=== PATIENT | female | born 1925 | race Caucasian/White ===

== ENCOUNTER 2017-05-04 15:17 | Inpatient (IN) | payer MEDICARE ==
[~2017-05-04] VITALS: Ht 170.2 cm; Wt 60.8 kg
[2017-05-04] MEDS ORDERED: SODIUM CHLORIDE FLUSH 10ML SYR IVF ONE (15:30)
[2017-05-04] MEDS ORDERED: ASPIRIN 81 MG TABLET CHEW PO ONE (15:30)
[2017-05-04] MEDS ORDERED: DILTIAZEM 5 MG/ML, 5ML IV ONE (15:30)
[2017-05-04] MEDS ORDERED: AMLO5TAB2 PO (15:33)
[2017-05-04] MEDS ORDERED: DOCU-186 PO (15:33)
[2017-05-04] MEDS ORDERED: LISI5TAB7 PO (15:34)
[2017-05-04] MEDS ORDERED: ASPI-621 PO (15:34)
[2017-05-04] MEDS ORDERED: SPIR25TA3 PO (15:35)
[2017-05-04] MEDS ORDERED: DILTIAZEM 5 MG/ML, 5ML ONE ×2 (15:52→16:49)
[2017-05-04] MEDS ORDERED: ASPIRIN 81 MG TABLET CHEW ONE ×2 (15:52→16:49)
[2017-05-04 16:42] LABS: BASOPHILS # (AUTO) 0.05 x10^3/uL (0-0.1); BASOPHILS % (AUTO) 1 % (0-1); EOSINOPHILS # (AUTO) 0.21 x10^3/uL (0-0.4); EOSINOPHILS % (AUTO) 3 % (1-7); LYMPHOCYTES # (AUTO) 1.41 x10^3/uL (1-3.4); LYMPHOCYTES % (AUTO) 18 % (22-44); MD NO; MEAN CORPUSCULAR HEMOGLOBIN 29.6 pg (27.0-34.8); MEAN CORPUSCULAR HGB CONC 32.9 g/dL (32.4-35.8); MEAN CORPUSCULAR VOLUME 90.1 fL (80-100); MEAN PLATELET VOLUME 8.8 fL (7.4-10.4); MONOCYTES # (AUTO) 0.73 x10^3/uL (0.2-0.8); MONOCYTES % (AUTO) 10 % (2-9); NEUTROPHILS # (AUTO) 5.29 x10^3/uL (1.8-6.8); NEUTROPHILS % (AUTO) 69 % (42-75); PLATELET COUNT 273 x10^3/uL (130-400); RED BLOOD COUNT 4.07 x10^6/uL (3.82-5.3); RED CELL DISTRIBUTION WIDTH 15.1 % (9.6-15.2)
[2017-05-04 16:48] LABS: PROTHROMBIN TIME 10.4 Seconds (9.6-11.5)
[2017-05-04 16:52] LABS: ALANINE AMINOTRANSFERASE 19 U/L (12-78); ALBUMIN 3.8 g/dL (3.4-5.0); ANION GAP 8 mmol/L (5-15); CALCIUM 9.6 mg/dL (8.5-10.1); CHLORIDE 103 mmol/L (98-107); CREATININE 1.26 mg/dL (0.55-1.02)
[2017-05-04 16:57] LABS: ALKALINE PHOSPHATASE 111 U/L (45-117); BILIRUBIN,TOTAL 0.8 mg/dL (0.2-1.0); TOTAL PROTEIN 7.6 g/dL (6.4-8.2); TROPONIN I < 0.015 ng/mL (0.000-0.045)
[2017-05-04] MEDS ORDERED: SODIUM CHLORIDE FLUSH 10ML SYR IVF PRN (17:30)
[2017-05-04] MEDS ORDERED: AMPICILLIN/SULBACTAM 3 GM in SODIUM CHLORIDE 0.9% 100 ML IV ONE (17:30)
[2017-05-04] MEDS ORDERED: ENOXAPARIN 100 MG/ML SQ SCH (17:30)
[2017-05-04 18:05] VITALS: BP 98/66
[2017-05-04] MEDS ORDERED: SENN-87 PO (18:23)
[2017-05-04] MEDS ORDERED: MELA3TAB2 PO (18:23)
[2017-05-04] MEDS ORDERED: ACET500T63 PO (18:23)
[2017-05-04] MEDS ORDERED: TRAM50TA2 PO (18:23)
[2017-05-04] MEDS: AMPICILLIN/SULBACTAM 3 GM in SODIUM CHLORIDE 0.9% 100 ML IV SCH (18:43)
[2017-05-04] MEDS ORDERED: OXYcodone IR 5MG TABLET PO PRN (19:00)
[2017-05-04] MEDS ORDERED: HEPARIN 5,000 UNITS/ML, 1ML IV PRN (19:00)
[2017-05-04] MEDS ORDERED: POLYETHYLENE GLYCOL 17 GM PACKET PO PRN (19:00)
[2017-05-04] MEDS ORDERED: ONDANSETRON 2MG/ML, 2ML IVPush PRN (19:00)
[2017-05-04] MEDS ORDERED: BISACODYL 10 MG SUPP PR PRN (19:00)
[2017-05-04] MEDS ORDERED: HEPARIN 25,000 UNITS/500ML PMX 500 ML IV PRN (19:00)
[2017-05-04] MEDS ORDERED: HEPARIN 5,000 UNITS/ML, 1ML IV ONE (19:00)
[2017-05-04 19:08] VITALS: BP 107/61
[2017-05-04] MEDS: METOPROLOL TARTRATE 25 MG TABLET PO SCH (20:17)
[2017-05-04] MEDS: SENNOSIDES 8.6 MG TABLET PO SCH (20:17)
[2017-05-04] MEDS: SODIUM CHLORIDE FLUSH 10ML SYR IVF SCH (20:18)
[2017-05-04] MEDS: MELATONIN 3 MG TABLET PO SCH (20:18)
[2017-05-04] MEDS: FUROSEMIDE 20 MG/2 ML IV SCH (20:18)
[2017-05-04 22:34] LABS: MICROSCOPIC AUTO
[2017-05-04 22:36] LABS: CULTURE INDICATED? YES
[2017-05-04 22:54] LABS: TROPONIN I < 0.015 ng/mL (0.000-0.045)
[2017-05-05] MEDS: AMPICILLIN/SULBACTAM 3 GM in SODIUM CHLORIDE 0.9% 100 ML IV SCH ×4 (01:01→21:06)
[2017-05-05 01:17] VITALS: BP 89/55
[2017-05-05 05:17] LABS: BASOPHILS # (AUTO) 0.09 x10^3/uL (0-0.1); BASOPHILS % (AUTO) 1 % (0-1); EOSINOPHILS % (AUTO) 3 % (1-7); LYMPHOCYTES # (AUTO) 1.55 x10^3/uL (1-3.4); LYMPHOCYTES % (AUTO) 24 % (22-44); MD NO; MEAN CORPUSCULAR HEMOGLOBIN 29.6 pg (27.0-34.8); MEAN CORPUSCULAR HGB CONC 33.3 g/dL (32.4-35.8); MEAN CORPUSCULAR VOLUME 88.8 fL (80-100); MEAN PLATELET VOLUME 9.4 fL (7.4-10.4); MONOCYTES # (AUTO) 0.73 x10^3/uL (0.2-0.8); MONOCYTES % (AUTO) 12 % (2-9); NEUTROPHILS # (AUTO) 3.78 x10^3/uL (1.8-6.8); NEUTROPHILS % (AUTO) 60 % (42-75); PLATELET COUNT 252 x10^3/uL (130-400); RED CELL DISTRIBUTION WIDTH 14.7 % (9.6-15.2)
[2017-05-05 05:25] LABS: CHLORIDE 105 mmol/L (98-107)
[2017-05-05 05:41] LABS: ALANINE AMINOTRANSFERASE 15 U/L (12-78); ALBUMIN 3.1 g/dL (3.4-5.0); ALKALINE PHOSPHATASE 91 U/L (45-117); ANION GAP 7 mmol/L (5-15); CALCIUM 8.8 mg/dL (8.5-10.1); CREATININE 1.18 mg/dL (0.55-1.02); TOTAL PROTEIN 6.4 g/dL (6.4-8.2); TROPONIN I < 0.015 ng/mL (0.000-0.045)
[2017-05-05] MEDS: METOPROLOL TARTRATE 25 MG TABLET PO SCH ×2 (06:00→16:23)
[2017-05-05] MEDS ORDERED: HEPARIN 25,000 UNITS/500ML PMX 500 ML IV PRN (06:00)
[2017-05-05 07:40] VITALS: BP 95/62
[2017-05-05] MEDS: LISINOPRIL 5 MG TABLET PO SCH (07:57)
[2017-05-05] MEDS: SENNA/DOCUSATE TABLET PO SCH (07:57)
[2017-05-05] MEDS ORDERED: SPIRONOLACTONE 25 MG TABLET PO SCH (09:00)
[2017-05-05] MEDS: ASPIRIN 81 MG TABLET EC PO SCH (09:12)
[2017-05-05] MEDS: SODIUM CHLORIDE FLUSH 10ML SYR IVF SCH ×2 (09:12→21:08)
[2017-05-05] MEDS: FUROSEMIDE 20 MG/2 ML IV SCH ×3 (09:12→17:11)
[2017-05-05 14:30] VITALS: BP 112/76
[2017-05-05] MEDS: HEPARIN 5,000 UNITS/ML, 1ML SQ SCH (14:43)
[2017-05-05] MEDS: ACETAMINOPHEN 325 MG TABLET PO PRN (17:26)
[2017-05-05 20:24] VITALS: BP 104/63
[2017-05-05] MEDS: SENNOSIDES 8.6 MG TABLET PO SCH (21:08)
[2017-05-05] MEDS: MELATONIN 3 MG TABLET PO SCH (21:08)
[2017-05-06] VITALS (7 sets, daily range): BP systolic 88–113; BP diastolic 53–75
[2017-05-06] MEDS: HEPARIN 5,000 UNITS/ML, 1ML SQ SCH ×3 (00:36→15:55)
[2017-05-06] MEDS: AMPICILLIN/SULBACTAM 3 GM in SODIUM CHLORIDE 0.9% 100 ML IV SCH ×3 (03:31→17:04)
[2017-05-06] MEDS: METOPROLOL TARTRATE 25 MG TABLET PO SCH (06:43)
[2017-05-06] MEDS: FUROSEMIDE 20 MG/2 ML IV SCH ×2 (08:24→17:05)
[2017-05-06] MEDS: SODIUM CHLORIDE FLUSH 10ML SYR IVF SCH ×2 (08:25→19:50)
[2017-05-06] MEDS: LISINOPRIL 5 MG TABLET PO SCH (08:25)
[2017-05-06] MEDS: ASPIRIN 81 MG TABLET EC PO SCH (08:25)
[2017-05-06] MEDS: SENNA/DOCUSATE TABLET PO SCH (08:25)
[2017-05-06] MEDS ORDERED: DIGOXIN 0.25 MG/ML, 2ML IVPush SCH ×3 (09:30→15:30)
[2017-05-06] MEDS ORDERED: DIGOXIN 0.25 MG/ML, 2ML ONE (09:54)
[2017-05-06] MEDS ORDERED: DIGOXIN 0.25 MG/ML, 2ML IVPush ONE (15:30)
[2017-05-06] MEDS: SENNOSIDES 8.6 MG TABLET PO SCH (19:50)
[2017-05-06] MEDS: METOPROLOL TARTRATE 50 MG TABLET PO SCH (19:50)
[2017-05-06] MEDS: MELATONIN 3 MG TABLET PO SCH (19:50)
[2017-05-07] MEDS: HEPARIN 5,000 UNITS/ML, 1ML SQ SCH ×3 (00:13→16:00)
[2017-05-07 01:45] VITALS: BP 114/68
[2017-05-07] MEDS: AMPICILLIN/SULBACTAM 3 GM in SODIUM CHLORIDE 0.9% 100 ML IV SCH ×2 (01:45→08:37)
[2017-05-07] MEDS: METOPROLOL TARTRATE 50 MG TABLET PO SCH (06:36)
[2017-05-07] MEDS: ACETAMINOPHEN 325 MG TABLET PO PRN (06:39)
[2017-05-07 08:00] VITALS: BP 118/76
[2017-05-07] MEDS ORDERED: METO50TA82 PO (08:07)
[2017-05-07] MEDS ORDERED: CEPH-368 PO (08:07)
[2017-05-07] MEDS: ASPIRIN 81 MG TABLET EC PO SCH (08:31)
[2017-05-07] MEDS: SODIUM CHLORIDE FLUSH 10ML SYR IVF SCH (08:31)
[2017-05-07] MEDS: LISINOPRIL 5 MG TABLET PO SCH (08:31)
[2017-05-07] MEDS: FUROSEMIDE 20 MG/2 ML IV SCH (08:31)
[2017-05-07] MEDS: SENNA/DOCUSATE TABLET PO SCH (08:35)
== END 2017-05-07 16:48 | disposition home or self-care (01) | DRG 602 ==
LOC: ED 16:33 → EDIP 17:16 → 5SO 17:45
PROVIDERS: ADMIT Family Medicine; ATTEND Hospitalist
DX: L03.115 Cellulitis of right lower limb (principal); I50.33 Acute on chronic diastolic (congestive) heart failure; N17.9 Acute kidney failure, unspecified; E44.0 Moderate protein-calorie malnutrition; E86.9 Volume depletion, unspecified; D68.69 Other thrombophilia; I48.0 Paroxysmal atrial fibrillation; Z68.21 Body mass index [BMI] 21.0-21.9, adult; Z79.82 Long term (current) use of aspirin; I11.0 Hypertensive heart disease with heart failure; L03.116 Cellulitis of left lower limb; Z79.899 Other long term (current) drug therapy
CPT/HCPCS: 36415; 71045; 80053; 81001; 83605; 83735; 83880; 84145; 84443; 84484; 85025; 85520; 85610; 85730; 87040; 87086; 93005; 93306; 93970; 96374; J0295; J1644; J1650; J1160; J1940